=== PATIENT | male | born 1955 | race Caucasian/White ===

== ENCOUNTER 2024-03-04 11:33 | Emergency (ER) | payer MEDICARE, MEDICAID ==
[~2024-03-04] VITALS: Ht 177.8 cm; Wt 70.9 kg
[2024-03-04 11:58] VITALS: BP 137/84; PULSE 80; RESP 18; TEMP 97.8; O2SAT 98
== END 2024-03-04 13:31 | disposition home or self-care (01) ==
LOC: ER 11:34
DX: K40.20 Bilateral inguinal hernia, without obstruction or gangrene, not specified as recurrent (principal); Z88.0 Allergy status to penicillin
CPT/HCPCS: 99284

== ENCOUNTER 2024-07-29 09:09 | Outpatient (CLI) | payer MEDICARE, MEDICAID | END 2024-07-29 23:59 | disposition home or self-care (01) | LOC: RAD 09:09 | PROVIDERS: ATTEND Family Medicine | DX: R11.0 Nausea (principal) | CPT/HCPCS: 74022 ==